=== PATIENT | male | born 1970 | race Caucasian/White ===

== ENCOUNTER 2019-06-21 19:44 | Emergency (ER) | payer SELFPAY ==
[~2019-06-21] VITALS: Ht 154.9 cm; Wt 72.6 kg
[2019-06-21 19:52] VITALS: Ht 154.9 cm; Wt 72.6 kg
[2019-06-22 00:19] VITALS: BP 125/80
== END 2019-06-22 00:19 | disposition home or self-care (01) ==
LOC: ED 19:44
DX: S09.8XXA Other specified injuries of head, initial encounter (principal); W01.0XXA Fall on same level from slipping, tripping and stumbling without subsequent striking against object, initial encounter; Y93.89 Activity, other specified; Y92.89 Other specified places as the place of occurrence of the external cause; Y99.8 Other external cause status

== ENCOUNTER 2019-09-25 21:40 | Emergency (ER) | payer SELFPAY ==
[~2019-09-25] VITALS: Ht 165.1 cm; Wt 83.9 kg
[2019-09-25 21:51] VITALS: Ht 165.1 cm; Wt 83.9 kg
[2019-09-25 22:59] VITALS: BP 156/85
== END 2019-09-25 22:59 | disposition home or self-care (01) ==
LOC: ED 21:40
DX: L50.9 Urticaria, unspecified (principal)
CPT/HCPCS: J7512